=== PATIENT | male | born 1955 | race Caucasian/White ===

== ENCOUNTER 2017-02-10 10:48 | Day surgery (SDC) | payer OTHER ==
[2017-02-10] MEDS ORDERED: D5 LR 1000 ML 1,000 ML IV ONE (10:57)
[2017-02-10] MEDS ORDERED: DIPRIVAN VIAL 20 ML ONE (12:15)
[2017-02-10] MEDS ORDERED: XYLOCAINE 2 % (PLAIN) ONE (12:31)
[2017-02-10 13:20] VITALS: BP 115/68
== END 2017-02-10 13:05 | disposition home or self-care (01) ==
LOC: SURG1 10:48
PROVIDERS: ATTEND Internal Medicine Gastroenterology
PROC: 0DJD8ZZ Inspection of Lower Intestinal Tract, Via Natural or Artificial Opening Endoscopic (ICD-10-PCS; principal; 2017-02-10 13:45)
PROC: 0DBL8ZX Excision of Transverse Colon, Via Natural or Artificial Opening Endoscopic, Diagnostic (ICD-10-PCS; principal; 2017-02-10 13:45)
PROC: 0DBK8ZX Excision of Ascending Colon, Via Natural or Artificial Opening Endoscopic, Diagnostic (ICD-10-PCS; principal; 2017-02-10 13:45)
DX: Z12.11 Encounter for screening for malignant neoplasm of colon (principal); Z80.0 Family history of malignant neoplasm of digestive organs; K64.0 First degree hemorrhoids; K63.5 Polyp of colon; K57.30 Diverticulosis of large intestine without perforation or abscess without bleeding; D12.2 Benign neoplasm of ascending colon; D12.3 Benign neoplasm of transverse colon
CPT/HCPCS: A4217; J2001; J3490; J7120